=== PATIENT | female | born 1995 | race Two or more races ===

== ENCOUNTER 2018-12-07 19:31 | Observation (INO) | payer MEDICAID ==
[~2018-12-07] VITALS: Ht 167.6 cm; Wt 87.5 kg
[2018-12-07] MEDS ORDERED: PREN1TAB78 MT (21:26)
[2018-12-07] MEDS ORDERED: ASPI-1159 PO (21:41)
== END 2018-12-07 22:30 | disposition home or self-care (01) ==
LOC: ER 19:31 → 8 EST LDRP 20:51
PROVIDERS: ADMIT Specialist; ATTEND Specialist
DX: O23.593 Infection of other part of genital tract in pregnancy, third trimester (principal); O26.893 Other specified pregnancy related conditions, third trimester; R10.2 Pelvic and perineal pain; Z3A.34 34 weeks gestation of pregnancy
CPT/HCPCS: 99281; G0378